=== PATIENT | female | born 1980 | race Two or more races ===

== ENCOUNTER 2024-12-16 19:40 | Emergency (ER) | payer MEDICAID, OTHER ==
[~2024-12-16] VITALS: Ht 160 cm; Wt 85.3 kg
--- NOTE | 2024-12-16 20:21 | ED.PDOC ---
Musculoskeletal HPI Comments A 43 year-old female, with a Hx DM and Neuropathy, who presents to the ED with a chief complaint of left lower extremity pain for X1 week, now worsening. Patient states left lower extremity pain radiates to the left buttock, with associated "throbbing" like sensation. Patient reports additionally symptoms of SOB and li ghtheadedness as of yesterday. Patient states she took 800mg of Ibuprofen the past X2 days, with no relief noted. Patient additionally reports vaginal bleeding after taking Ibuprofen medications, LMP was X4 years ago. Patient additionally reports her BG levels are typically higher, with last A1c level at 14 recorded at PCP clinic months ago. Patients vitals are stable. Patient has no further complaints at this time and otherwise denies chest pain, weakness, fatigue, dysuria, fever, chills, N/V/D. Chief Complaint: Lower Extremity Time Seen by MD: 19:56 Reviewed Notes: Nurses Notes, Medications, Allergies Allergies: Coded Allergies: No Known Drug Allergy (Verified Allergy, Unknown, 12/16/24) Information Source: Patient Mode of Arrival: Ambulatory Location: Left Extremity Location: Leg Timing: Weeks Prehospital treatment: None Severity: Moderate Pain: Moderate Mechanism: Spontaneous Circumstances: Spontaneous Onset of Symptoms: Spontaneous Symptoms: Pain DVT Risk Factors: NONE Associated signs and symptoms: Leg pain Past Medical History PAST MEDICAL HISTORY: Asthma, DM Surgical History: Denies all surgeries PEDIATRIC CNS History: No Pertinent PEDIATRIC CNS History Family History Family History: Reviewed,noncontributory to illness, No family hx of Cancer, No family hx of DM, No family hx of Heart laureano, No family hx of HTN, No family hx ofKidney laureano, No family hx of Liver laureano, No family hx of Lung laureano, No family hx of Stroke Social History Smoker: Non-Smoker Alcohol: Denies ETOH Use Drugs: Denies Drug Use Lives In: Home Constitutional: denies: chills, diaphoresis, fatigue, fever, malaise, sweats, weakness, others EENTM: denies: blurred vision, double vision, ear bleeding, ear discharge, ear drainage, ear pain, ear ringing, eye pain, eye redness, hearing loss, mouth pain, mouth swelling, nasal discharge, nose bleeding, nose congestion, nose pain, photophobia, tearing, throat pain, throat swelling, voice changes, others Respiratory: denies: cough, hemoptysis, orthopnea, SOB at rest, shortness of breath, SOB with excertion, stridor, wheezing, others Cardiovascular: denies: chest pain, dizzy spells, diaphoresis, Dyspnea on e xertion, edema, irregular heart beat, left arm pain, lightheadedness, palpitations, PND, syncope, others Gastrointestinal: denies: abdomen distended, abdominal pain, blood streaked bowels, constipated, diarrhea, dysphagia, difficulty swallowing, hematemesis, melena, nausea, poor appetite, poor fluid intake, rectal bleeding, rectal pain, vomiting, others Genitourinary: denies: abnormal vagina bleeding, burning, dyspareunia, dysuria, flank pain, frequency, hematuria, incontinence, pain, , vagina discharge, urgency, others Neurological: denies: dizziness, fainting, headache, left sided numbness, left sided weakness, numbness, paresthesia, pre-existing deficit, right sided numbness, right sided weakness, seizure, speech problems, tingling, tremors, weakness, others Musculoskeletal: reports: others (Patient has left-sided hip pain radiating down the anterior and posterior left leg); denies: back pain, gout, joint pain, joint swelling, muscle pain, muscle stiffness, neck pain Integumetry: denies: bruises, change in color, change in hair/nails, dryness, laceration, lesions, lumps, rash, wounds, others Allergic/Immunocompromised: denies: Difficulty Healing, Frequent Infections, Hives, Itching, others Hematologic/Lymphatic: denies: anemia, blood clots, easy bleeding, easy bruising, swollen glands, others Endocrine: denies: excessive hunger, excessive sweating, excessive thirst, excessive urination, flushing, intolerance to cold, intolerance to heat, unexplained weight gain, unexplained weight loss, others Psychiatric: denies: anxiety, bipolar disorder, depression, hopeless, panic disorder, schizophrenia, sleepless, suicidal, others All Other Systems: Reviewed and Negative Physical Exam General Appearance: Moderate Distress (Due to leg pain concerns.), Obese HEENT: Normal ENT Inspection, Pharynx Normal, TMs Normal Neck: Full Range of Motion, Non-Tender, Normal, Normal Inspection Respiratory: Chest Non-Tender, Lungs Clear, No Accessory Muscle Use, No Respiratory Distress, Normal Breath Sounds Cardiovascular: No Edema, No JVD, No Murmur, No Gallop, Normal Peripheral Pulses, Regular Rate/Rhythm Breast Exam: Deferred Gastrointestinal: No Organomegaly, Non Tender, No Pulsatile Mass, Normal Bowel Sounds, Soft Genitalia: Deferred Pelvic: Deferred Rectal: Deferred Extremities: Other (Relatively unremarkable evaluation of left leg. No signs of edema or ecchymosis from the left hip through the anterior and posterior leg. Patient complains of stabbing pain.) Musculoskeletal : Location: Bilateral Extremity Location: Back (Diffuse bilateral lumbar tenderness to palpation. Difficult to assess due to body habitus. No signs of trauma. No step-offs. Patient denies any saddle paresthesia. Distal neurovascularly intact.) Apperance: Normal Neurologic: Alert Cerebellar Function: NOT DONE Reflexes: NOT DONE Skin: Dry, Normal Color, Warm Lymphatic: No Adenopathy Was a procedure done? Was a procedure done?: No Differential Diagnosis EXT Differential Diagnosis: Cellulitis, Fracture, Sprain, Other (Lumbar radiculopathy, hyperglycemia) Other Differential Diagnosis Neuropathy X-Ray, Labs, Meds, VS Vital Signs Date Time Temp Pulse Resp B/P (MAP) Pulse Ox O2 Delivery O2 Flow Rate FiO2 12/16/24 23:37 97.4 97 20 112/82 (92) 96 97.4 12/16/24 20:43 98 Room Air* 0 21 12/16/24 19:56 102 12/16/24 19:42 98.2 104 18 132/86 100 98.2 Lab Test 12/16/24 20:56 12/16/24 20:10 12/16/24 20:07 Range/Units Troponin I High Sensitivity 23 23 </=34 ng/L White Blood Count 10.6 4.4-10.8 10^3/uL Red Blood Count 5.62 H 4.0-5.20 10^6/uL Hemoglobin 16.1 12.2-16.2 g/dL Hematocrit 47.3 H 36.0-46.0 % Mean Corpuscular Volume 84.2 80.0-100.0 fL Mean Corpuscular Hemoglobin 28.5 28.0-32.0 pg Mean Corpuscular Hemoglobin Concent 33.9 32.0-36.0 g/dL Red Cell Distribution Width 13.0 11.8-14.3 % Platelet Count 196 140-450 10^3/uL Mean Platelet Volume 9.6 6.9-10.8 fL Neutrophils (%) (Auto) 52.2 37.0-80.0 % Lymphocytes (%) (Auto) 38.0 10.0-50.0 % Monocytes (%) (Auto) 7.5 0.0-12.0 % Eosinophils (%) (Auto) 1.5 0.0-7.0 % Basophils (%) (Auto) 0.8 0.0-2.0 % Neutrophils # (Auto) 5.5 1.6-8.6 10 ^3/uL Lymphocytes # (Auto) 4.0 0.4-5.4 10 ^3/uL Monocytes # (Auto) 0.8 0-1.3 10 ^3/uL Eosinophils # (Auto) 0.2 0-0.8 10 ^3/uL Basophils # (Auto) 0.1 0-0.2 10 ^3/uL Nucleated Red Blood Cells 0.2 % Sodium Level 136 136-145 mmol/L Potassium Level 4.0 3.5-5.1 mmol/L Chloride Level 101 98-107 mmol/L Carbon Dioxide Level 26 20-31 mmol/L Anion Gap 9 5-15 Blood Urea Nitrogen 7 L 9-23 mg/dL Creatinine 1.17 H 0.550-1.02 mg/dL Glomerular Filtration Rate Calc 59 >90 mL/min BUN/Creatinine Ratio 6.0 L 10.0-20.0 Serum Glucose 369 H 74-106 mg/dL Calcium Level 9.5 8.7-10.4 mg/dL B-Type Natriuretic Peptide 16.77 0-100 pg/mL Lipase 70 H 12-53 U/L Urine Color Light-yellow Yellow Urine Clarity Clear Clear Urine pH 6.0 5.0-9.0 Urine Specific Wheatley 1.032 1.001-1.035 Urine Protein Negative Negative Urine Ketones Negative Negative Urine Blood Negative Negative /uL Urine Nitrite Negative Negative Urine Bilirubin Negative Negative Urine Urobilinogen Normal Negative mg/dL Urine Leukocyte Esterase Negative Negative /uL Urine RBC <1 0 - 4 /hpf Urine Microscopic WBC 1 0-5 /HPF Urine Squamous Epithelial Cells Few <5 /hpf Urine Bacteria None seen None Seen /hpf Urine Glucose 4+ H Normal mg/dL Current Medications Medications (Trade) Dose Ordered Sig/Maya Route Start Time Stop Time Status Last Admin Acetaminophen/ Hydrocodone Bitart (Stokes 10325MG Tab) 1 tab ONCE ONCE PO 12/16/24 20:15 12/16/24 20:16 DC 12/16/24 20:43 Sodium Chloride 1,000 ml @ 1,000 mls/hr Q1H ONCE IV 12/16/24 23:15 12/17/24 00:14 12/16/24 23:58 Insulin Human Regular (InsuLIN R) 10 units ONCE ONCE IV 12/16/24 23:15 12/16/24 23:16 DC 12/17/24 00:08 [place] [id number] Ph: [phone] DIAGNOSTIC IMAGING Diagnostic Imaging Report : [id number] Signed PATIENT: Fior DelongCCT: [id number] UNIT: [id number] : 1980 LOC: ER ROOM / BED: / AGE / SEX: 43 / F ADM STATUS: REG ER SERVICE 06 ORDERING PHYSICIAN: MIKE BARDALES PAC PROCEDURE(s): LUMB2 - LUMBAR SPINE 3 VIEW REASON: Radiculopathy ORDER NUMBER(s): [id number], ACCESSION NUMBER(s): [id number] EXAM: XY LUMBAR SPINE 3 VIEW INDICATION: Radiculopathy TECHNIQUE: 3 views of the lumbar spine COMPARISON: None FINDINGS/IMPRESSION: No radiographic evidence of an acute osseous abnormality. There is no acute fracture, osseous malalignment, or aggressive focal osseous lesion. X-Ray, Labs, Meds, VS Comment All studies performed the ED were evaluated by me personally. Patient's serum laboratories revealed a significant elevated blood glucose level as well as elevated lipase. Patient denies any history of pancreatic concerns. Imaging studies were nonspecific for any degenerative disc disease. Based on patient presentation, I believe the patient is experiencing neuropathy from low back concerns. Patient denies any abdominal pain therefore, advised patient to discuss the elevated lipase with the primary care provider. Additionally, spent extensive time discussing glucose management with the patient. Advised she needs to follow up with the primary care provider to get on a successful blood sugar management scheduled. Images Reviewed?: Images reviewed and evaluated by me Time of 1ST Reevaluation: 00:17 Reevaluation 1ST: Improved Consultation: PCP Patient Education/Counseling: Diagnosis, Treatment Family Education/Counseling: Diagnosis, Treatment, No Family Present Medical Screening: No EMC Exist At This Time Sepsis Recent Procedure: No On Antibiotic Therapy: No Respiratory Rate >20: No Heart Rate >90: No Temp<36 C (96.8 F) or >38.3 C: No SBP <90 or MAP <65 mmHG: No New Acute Mental Status Change: No Is the patient on CPAP, BIPAP,: No IV fluid given: No Departure 1 Departure Time of Disposition: 00:17 Impression: Primary Impression: Lumbar radiculopathy Additional Impressions: Hyperglycemia due to diabetes mellitus Elevated lipase Disposition: HOME / SELF CARE / HOMELESS Condition: Stable Additional Instructions: Advised pain medication as needed for symptomatic relief. 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 Also, patient should discuss her elevated lipase findings with the primary care provider as well. e-Prescriptions Hydrocodone-Acetaminophen (Hydrocodone Bitartrate/AC 10-325 mg) 1 Tab Tab 1 TAB PO Q8HP PRN, #10 TAB Prov: MIKE BARDALES PAC 12/17/24 Discharged With: Self, Friend Critical Care Note Critical Care Time?: No Stability Stability form required: No Heart Score Heart Score: Heart Score Response (Comments) Value History N/A 0 EKG N/A 0 Age N/A 0 Risk Factors N/A 0 Troponin N/A 0 Total 0 I personally scribed for MIKE BARDALES PAC ([email or web address]) on 12/16/24 at 20:21. Electronically submitted by Sallie Dixon ([employer]). I personally scribed for MIKE BARDALES PAC ([email or web address]) on 12/16/24 at 21:10. Electronically submitted by Sallie Dixon ([employer]). I personally scribed for MIKE BARDALES PAC ([email or web address]) on 12/16/24 at 21:57. Electronically submitted by Sallie Dixon ([employer]). MIKE BARDALES PAC Dec 16, 2024 20:21
[2024-12-16 20:27] LABS: Hematocrit 47.3 % (36.0-46.0); Hemoglobin 16.1 g/dL (12.2-16.2); Mean Corpuscular Hemoglobin 28.5 pg (28.0-32.0); Mean Corpuscular Volume 84.2 fL (80.0-100.0); Nucleated Red Blood Cells % 0.2 %
[2024-12-16 20:37] LABS: Chloride 101 mmol/L (98-107); Potassium 4.0 mmol/L (3.5-5.1)
[2024-12-16 20:38] LABS: Anion Gap 9 (5-15); Calcium 9.5 mg/dL (8.7-10.4); Carbon Dioxide 26 mmol/L (20-31)
--- NOTE | 2024-12-16 20:39 | DVH ---
EXAM: XY LUMBAR SPINE 3 VIEW INDICATION: Radiculopathy TECHNIQUE: 3 views of the lumbar spine COMPARISON: None FINDINGS/IMPRESSION: No radiographic evidence of an acute osseous abnormality. There is no acute fracture, osseous malalig nment, or aggressive focal osseous lesion.
[2024-12-16 20:43] VITALS: O2SAT 98
[2024-12-16 20:43] LABS: BUN/Creatinine Ratio 6.0 (10.0-20.0)
[2024-12-16] MEDS: HYDROcodone-ACET 10/325MG TAB PO ONE (20:43)
[2024-12-16 20:50] LABS: Blood Urea Nitrogen 7 mg/dL (9-23); Glucose 369 mg/dL (74-106); Sodium 136 mmol/L (136-145)
[2024-12-16 20:51] LABS: Lipase 70 U/L (12-53)
[2024-12-16 21:37] LABS: Urine Protein, UAD Negative (Negative)
[2024-12-16 23:37] VITALS: BP 112/82; PULSE 97; RESP 20; TEMP 97.4; O2SAT 96
[2024-12-16] MEDS: SODIUM CHLORIDE 0.9% 1,000 ML IV ONE (23:58)
[2024-12-17] MEDS: InsuLIN REG 1unit/0.01ml Soln (100units/ml) IV ONE (00:08)
[2024-12-17] MEDS ORDERED: HYDR-4798 PO (00:19)
--- NOTE | 2024-12-18 02:31 | ECG ---
[facility] Test Date: 2024-12-16 Test Time: 19:51:49 Pat Name: Fior Delong Department: Room: Gender: F Wrapping Machine Operator: : 1980 Requested By: MIKE BARDALES Order Number: [id number] Reading MD: Measurements Intervals [place] Rate: 102 P: 71 [place]: 141 QRS: 53 QRSD: 77 T: -14 QT: 339 QTc: 442 Interpretive Statements Sinus tachycardia RSR' in V1 or V2, right VCD or RVH Please click the below link to view image of tracing.
== END 2024-12-17 00:47 | disposition home or self-care (01) ==
LOC: ER 19:40
DX: M54.16 Radiculopathy, lumbar region (principal); E11.65 Type 2 diabetes mellitus with hyperglycemia; E11.40 Type 2 diabetes mellitus with diabetic neuropathy, unspecified; J45.909 Unspecified asthma, uncomplicated; Z79.899 Other long term (current) drug therapy
CPT/HCPCS: 36415; 72100; 80048; 81001; 82947; 83690; 83880; 84484; 85025; 93005; 96361; 96374; 99285; J1815; J7030; 82962

== ENCOUNTER 2024-12-26 19:08 | Emergency (ER) | payer OTHER, MEDICAID ==
[~2024-12-26] VITALS: Ht 160 cm; Wt 85.0 kg
[~2024-12-26 19:08] MED LIST: HYDR-4798 PO
--- NOTE | 2024-12-26 19:35 | ED.PDOC ---
Back pain HPI HPI Comments Lower back pain Chief Complaint: Lower Extremity Comments Patient has been having lower back pain since December 16. She was seen had x- ray done which was unremarkable. She was prescribed Fisher and Robaxin, which helped. She was also seen at urgent care and diagnosed with a UTI which she is on Keflex work. She has been on Keflex for three days. She wants her urine rechecked. She also needs a refill on her Fisher. She has seen her doctor for this and is being followed by her primary doctor. There is no urinary or bowel complaints and no weakness or numbness. The pain radiates to the left leg down to the knee. Time Seen by MD: 19:23 Allergies: Coded Allergies: No Known Drug Allergy (Verified Allergy, Unknown, 12/16/24) Home Meds Active Scripts Hydrocodone-Acetaminophen (Hydrocodone Bitartrate/AC 10-325 mg) 1 Tab Tab, 1 TAB PO Q8HP PRN, #10 TAB Prov:MIKE BARDALES PAC 12/17/24 Mode of Arrival: Ambulatory Past Medical History PAST MEDICAL HISTORY: Asthma, DM Surgical History: Denies all surgeries CERTIFIED MEDICATION TECHNICIAN History: No Pertinent CERTIFIED MEDICATION TECHNICIAN History Family History Family History: Reviewed,noncontributory to illness, No family hx of Cancer, No family hx of DM, No family hx of Heart laureano, No family hx of HTN, No family hx ofKidney laureano, No family hx of Liver laureano, No family hx of Lung laureano, No family hx of Stroke Social History Smoker: Non-Smoker Alcohol: Denies ETOH Use Drugs: Denies Drug Use Lives In: Home Constitutional: denies: chills, diaphoresis, fatigue, fever, malaise, sweats, weakness, others EENTM: denies: blurred vision, double vision, ear bleeding, ear discharge, ear drainage, ear pain, ear ringing, eye pain, eye redness, hearing loss, mouth pain, mouth swelling, nasal discharge, nose bleeding, nose congestion, nose pain, photophobia, tearing, throat pain, throat swelling, voice changes, others Respiratory: denies: cough, hemoptysis, orthopnea, SOB at rest, shortness of breath, SOB with excertion, stridor, wheezing, others Cardiovascular: denies: chest pain, dizzy spells, diaphoresis, Dyspnea on exertion, edema, irregular heart beat, left arm pain, lightheadedness, palpitations, PND, syncope, others Gastrointestinal: denies: abdomen distended, abdominal pain, blood streaked bowels, constipated, diarrhea, dysphagia, difficulty swallowing, hematemesis, melena, nausea, poor appetite, poor fluid intake, rectal bleeding, rectal pain, vomiting, others Genitourinary: denies: abnormal vagina bleeding, burning, dyspareunia, dysuria, flank pain, frequency, hematuria, incontinence, pain, , vagina discharge, urgency, others Neurological: denies: dizziness, fainting, headache, left sided numbness, left sided weakness, numbness, paresthesia, pre-existing deficit, right sided numbness, right sided weakness, seizure, speech problems, tingling, tremors, weakness, others Musculoskeletal: reports: back pain, muscle pain; denies: gout, joint pain, joint swelling, muscle stiffness, neck pain, others Integumetry: denies: bruises, change in color, change in hair/nails, dryness, laceration, lesions, lumps, rash, wounds, others Allergic/Immunocompromised: denies: Difficulty Healing, Frequent Infections, Hives, Itching, others Hematologic/Lymphatic: denies: anemia, blood clots, easy bleeding, easy bruising, swollen glands, others Endocrine: denies: excessive hunger, excessive sweating, excessive thirst, excessive urination, flushing, intolerance to cold, intolerance to heat, unexplained weight gain, unexplained weight loss, others Psychiatric: denies: anxiety, bipolar disorder, depression, hopeless, panic disorder, schizophrenia, sleepless, suicidal, others All Other Systems: Reviewed and Negative Physical Exam Exam Comments Left lower paralumbar areas them to palpation. There is no midline tenderness or deformities. Straight leg raise on the on the left side is positive. Patient walks with a normal gait. General Appearance: No Apparent Distress, Normal HEENT: Normal ENT Inspection, Pharynx Normal, TMs Normal Neck: Full Range of Motion, Non-Tender, Normal, Normal Inspection Respiratory: Chest Non-Tender, Lungs Clear, No Accessory Muscle Use, No Respiratory Distress, Normal Breath Sounds Cardiovascular: No Edema, No JVD, No Murmur, No Gallop, Normal Peripheral Pulses, Regular Rate/Rhythm Breast Exam: Deferred Gastrointestinal: No Organomegaly, Non Tender, No Pulsatile Mass, Normal Bowel Sounds, Soft Genitalia: Deferred Pelvic: Deferred Rectal: Deferred Extremities: No calf tenderness, Normal capillary refill, Normal inspection, Normal range of motion, Non-tender, No pedal edema Musculoskeletal : Apperance: Normal Neurologic: Alert, style advisor II-XII nml as Tested, No Motor Deficits, Normal Affect, Normal Mood, No Sensory Deficits Cerebellar Function: Normal Reflexes: Normal Skin: Dry, Normal Color, Warm Lymphatic: No Adenopathy Was a procedure done? Was a procedure done?: No Back Pain Differential Dx Differential Diagnosis: Fracture, Musculoskeletal Pain, Other (radiculopathy) X-Ray, Labs, Meds, VS Vital Signs Date Time Temp Pulse Resp B/P (MAP) Pulse Ox O2 Delivery O2 Flow Rate FiO2 12/26/24 19:21 97.7 89 18 141/86 98 97.7 Time of 1ST Reevaluation: 20:31 Reevaluation 1ST: Improved Patient Education/Counseling: Diagnosis, Treatment, Prognosis, Need For Follow Up Family Education/Counseling: No Family Present Comments Patient is not able to provide urine she is on Keflex therefore the treatment w ould not change at this time. Patient informs me that her doctor told her to come here for a steroid shot. She will rather have that. Besides the Toradol she will get a Decadron IM shot x1 and follow up with her doctor SEPSIS Sepsis Screen Date sepsis recognized/suspect: Dec 26, 2024 Time Sepsis recognized/suspect: 1924 Recent Procedure: No On Antibiotic Therapy: No Respiratory Rate >20: No Heart Rate >90: No Temp<36 C (96.8 F) or >38.3 C: No SBP <90 or MAP <65 mmHG: No New Acute Mental Status Change: No Is the patient on CPAP, BIPAP,: No Physician Orders Urinalysis (12/26/24 19:35) Dexamethasone Injection (Decadron Inject (12/26/24 20:30) Vital Signs Date Time Temp Pulse Resp B/P (MAP) Pulse Ox O2 Delivery O2 Flow Rate FiO2 12/26/24 19:21 97.7 89 18 141/86 98 97.7 Departure 1 Departure Time of Disposition: 20:29 Impression: Primary Impression: Lumbar radiculopathy Disposition: HOME / SELF CARE / HOMELESS Condition: Good e-Prescriptions Hydrocodone-Acetaminophen (Hydrocodone Bitartrate/AC 5-325 mg) 1 Tab Tab 1 TAB PO Q6HP PRN for 5 Days, #20 TAB Prov: DEVONTE GTZ MD 12/26/24 Discharged With: Self Critical Care Note Critical Care Time?: No Stability Stability form required: No DEVONTE GTZ MD Dec 26, 2024 19:35
[2024-12-26] MEDS ORDERED: HYDR-4902 PO (20:30)
[2024-12-26 21:00] VITALS: BP 130/80; PULSE 89; RESP 18; TEMP 98.2; O2SAT 96
[2024-12-26] MEDS: KETOROLAC TROMETH 30 MG/ML 1ML VIAL IM ONE (21:21)
[2024-12-26 22:14] LABS: Urine Protein, UAD Negative (Negative)
== END 2024-12-26 23:00 | disposition home or self-care (01) ==
LOC: ER 19:08
DX: M54.16 Radiculopathy, lumbar region (principal); J45.909 Unspecified asthma, uncomplicated; E11.9 Type 2 diabetes mellitus without complications; Z79.899 Other long term (current) drug therapy
CPT/HCPCS: 81001; 96372; 99284; J1100; J1885